=== PATIENT | female | born 1960 | race Caucasian/White ===

== ENCOUNTER 2021-04-22 20:09 | Emergency (ER) | payer OTHER ==
[~2021-04-22] VITALS: Ht 157.5 cm; Wt 61.2 kg
[2021-04-22 20:25] VITALS: BP 138/88
--- NOTE | 2021-04-22 20:41 | NUR ---
GAVI SWAB TAKEN TO [facility].
[2021-04-22 21:20] VITALS: BP 132/80
--- NOTE | 2021-04-22 21:20 | NUR ---
Patient discharged with v/s stable. Written and verbal after care instructions given and explained. Patient verbalized understanding. Ambulatory with steady gait. All questions addressed prior to discharge. Advised to follow up with PMD. JOE d/c patient, joe provided work note.
== END 2021-04-22 21:20 | disposition home or self-care (01) ==
LOC: MED 20:09
DX: Z20.822 Contact with and (suspected) exposure to COVID-19 (principal)
CPT/HCPCS: 99283